=== PATIENT | male | born 1990 | race Caucasian/White ===

== ENCOUNTER 2024-10-31 17:26 | Emergency (ER) | payer MEDICAID ==
[~2024-10-31] VITALS: Ht 167.6 cm; Wt 77.0 kg
[2024-10-31 17:38] VITALS: O2SAT 100
[2024-10-31] MEDS: ASPIRIN 325MG TABLET PO ONE (19:17)
[2024-10-31 19:53] LABS: BASOPHILS % 0.5 % (0.0-2.0); DIFFERENTIAL COMMENT 0; EOSINOPHILS % 0.8 % (0.0-5.0); HEMATOCRIT. 45.9 % (42.0-52.0); HEMOGLOBIN. 16.5 g/dL (14.0-18.0); LYMPHOCYTES % 35.1 % (20.0-50.0); MEAN CORPUSCULAR HEMOGLOBIN 31.4 pg (28.0-32.0); MEAN CORPUSCULAR HGB CONC 35.9 g/dL (31.0-37.0); MEAN CORPUSCULAR VOLUME 87.5 fL (80.0-94.0); MEAN PLATELET VOLUME 7.6 fl (7.4-10.4); MONOCYTES % 6.1 % (2.0-8.0); NEUTROPHILS % 57.5 % (40.0-76.0); PLATELET 221 x1000/uL (130-400); RED BLOOD CELL COUNT 5.25 mill/uL (4.7-6.1); RED CELL DISTRIBUTION WIDTH 12.9 % (11.6-14.6); WHITE BLOOD COUNT 8.3 x1000/uL (4.5-11.0)
[2024-10-31 20:00] LABS: CHLORIDE 105 mEq/L (98-107); SODIUM 139 mEq/L (136-145)
[2024-10-31 20:01] LABS: CALCIUM 10.4 mg/dL (8.7-10.4); CARBON DIOXIDE 29 mEq/L (21-32)
[2024-10-31 20:06] LABS: GLUCOSE 115 mg/dL (70-105); UREA NITROGEN BLOOD 11 mg/dL (9-23)
[2024-10-31 20:27] LABS: TROPONIN I HIGH SENSITIVITY < 4 ng/L (3.0-53)
[2024-10-31 21:25] VITALS: BP 123/67; PULSE 84; RESP 18; TEMP 36.61404; O2SAT 100
== END 2024-10-31 21:29 | disposition home or self-care (01) ==
LOC: ER 17:26
DX: R07.89 Other chest pain (principal); E11.9 Type 2 diabetes mellitus without complications; F19.90 Other psychoactive substance use, unspecified, uncomplicated
CPT/HCPCS: 36415; 71045; 80048; 84484; 85025; 93005; 99285